=== PATIENT | female | born 2000 | race Caucasian/White ===

== ENCOUNTER 2020-11-13 08:59 | Inpatient (IN) | payer OTHER ==
[~2020-11-13] VITALS: Ht 160 cm; Wt 128.4 kg
[~2020-11-13 08:59] MED LIST: ZANTAC150 MG PO
[2020-11-13 09:35] LABS: HEMOGLOBIN 12.3 gm/dl (12.3-15.3); RED BLOOD COUNT 4.31 M/UL (4.00-5.10)
[2020-11-13] MEDS ORDERED: TRANDATE 100 M100 MG PO (09:56)
[2020-11-13] MEDS ORDERED: LORTAB 5-325 M1 EACH PO (12:53)
[2020-11-14 05:16] LABS: HEMOGLOBIN 10.9 gm/dl (12.3-15.3)
== END 2020-11-14 16:47 | disposition home or self-care (01) | DRG 788 ==
LOC: OB 08:59
PROVIDERS: ADMIT Obstetrics & Gynecology
PROC: 4A1HX4Z Monitoring of Products of Conception, Cardiac Electrical Activity, External Approach (ICD-10-PCS; 2020-11-13)
PROC: 10D00Z1 Extraction of Products of Conception, Low, Open Approach (ICD-10-PCS; principal; 2020-11-13 10:58)
DX: O34.211 Maternal care for low transverse scar from previous cesarean delivery (principal); N85.8 Other specified noninflammatory disorders of uterus; Z3A.37 37 weeks gestation of pregnancy; Z37.0 Single live birth; O99.214 Obesity complicating childbirth; E66.01 Morbid (severe) obesity due to excess calories; O13.4 Gestational [pregnancy-induced] hypertension without significant proteinuria, complicating childbirth; O99.334 Smoking (tobacco) complicating childbirth; F17.200 Nicotine dependence, unspecified, uncomplicated; Z20.822 Contact with and (suspected) exposure to COVID-19
CPT/HCPCS: 36415; 81001; 82800; 85014; 85018; 85025; 90686; 90715; C9113; G0008; J0595; J0690; J1885; J2274; J2300; J2405; J2550; J2590; J3010; J7120; U0003